=== PATIENT | male | born 1980 | race Caucasian/White ===

== ENCOUNTER 2017-01-27 03:38 | Emergency (ER) | payer SELFPAY ==
[~2017-01-27] VITALS: Ht 182.9 cm; Wt 80.0 kg
[2017-01-27 03:45] VITALS: BP 116/72
[2017-01-27] MEDS ORDERED: DIPH,PERTUSS(ACELL),TET VAC/PF 0.5 ML IM-VACC ONE ×2 (04:00→04:02)
[2017-01-27] MEDS ORDERED: LIDOCAINE 1%, 20ML SQ ONE (04:00)
[2017-01-27] MEDS ORDERED: LIDOCAINE 1%, 20ML ONE (04:02)
== END 2017-01-27 04:37 | disposition home or self-care (01) ==
LOC: ED 04:30
DX: S09.90XA Unspecified injury of head, initial encounter (principal); S41.152A Open bite of left upper arm, initial encounter; S41.112A Laceration without foreign body of left upper arm, initial encounter; Y04.8XXA Assault by other bodily force, initial encounter; Y93.89 Activity, other specified; Y92.410 Unspecified street and highway as the place of occurrence of the external cause; Y99.8 Other external cause status
CPT/HCPCS: 12002; 90471; 90715

== ENCOUNTER 2017-02-05 11:05 | Emergency (ER) | payer SELFPAY | END 2017-02-05 11:39 | disposition left against medical advice (07) | LOC: ED 11:15 | DX: S41.112D Laceration without foreign body of left upper arm, subsequent encounter (principal) ==